=== PATIENT | male | born 1955 | race Caucasian/White ===

== ENCOUNTER → 2020-08-19 08:35 | Outpatient (BNVA) | payer OTHER, SELFPAY | PROVIDERS: Visit Provider Orthopaedic Surgery | DX: Z47.89 Encounter for other orthopedic aftercare (principal); Z96.641 Presence of right artificial hip joint | CPT/HCPCS: 99212 ==

== ENCOUNTER 2021-02-17 08:15 | Outpatient (REF) | payer OTHER, SELFPAY | END 2021-02-17 08:16 | disposition home or self-care (01) | LOC: HO.HOSX 08:15 | PROVIDERS: Visit Provider Orthopaedic Surgery | DX: Z13.89 Encounter for screening for other disorder (principal) ==

== ENCOUNTER 2021-02-20 07:52 | Outpatient (REF) | payer OTHER, SELFPAY ==
--- NOTE | ~2021-02-20 | XR_ITS ---
EXAMINATION: XR PELVIS CLINICAL INFORMATION: Pain COMPARISON: May 13, 2020 TECHNIQUE: AP view of the pelvis. FINDINGS: There is no evidence of acute fracture or diastases the pelvis. Patient status post right total hip arthroplasty which is unchanged on this single view. There is mild spurring about the left hip joint without joint space narrowing appreciated. There appear to be bilateral healed pubic fractures with hypertrophic bone formation about the left inferior pubis. There are also changes of enthesopathy present about the pelvis. There is partial sacralization of L5 on the right. XR/XR pelvis 1-2V IMPRESSION: Status post right total hip arthroplasty. Chronic pubic fractures Sacralization right side of L5.
== END 2021-02-20 07:53 | disposition home or self-care (01) ==
LOC: HO.HOSX 07:52
PROVIDERS: Visit Provider Orthopaedic Surgery
DX: Z96.641 Presence of right artificial hip joint (principal); T84.84XA Pain due to internal orthopedic prosthetic devices, implants and grafts, initial encounter
CPT/HCPCS: 72170; 99212

== ENCOUNTER 2021-10-17 10:17 | Outpatient (REF) | payer OTHER, SELFPAY ==
[2021-10-17 10:40] LABS: Binax Internal Control QC Valid; Binax Now Covid-19 Ag Negative (Negative)
== END 2021-10-17 10:18 | disposition home or self-care (01) ==
LOC: HO.LAB 10:17
PROVIDERS: Visit Provider Internal Medicine
DX: Z20.822 Contact with and (suspected) exposure to COVID-19 (principal)
CPT/HCPCS: C9803

== ENCOUNTER 2022-04-14 14:36 | Outpatient (REF) | payer OTHER, SELFPAY ==
--- NOTE | ~2022-04-14 | XR_ITS ---
EXAMINATION: XR HAND, RIGHT CLINICAL INFORMATION: Reason for examination is M79.89, other specified soft tissue disorders. COMPARISON: None TECHNIQUE: PA, lateral, and oblique views of the right hand. FINDINGS: The soft tissues are diffusely swollen/edematous in the visualized distal forearm, wrist and hand. No soft tissue gas or radiopaque foreign body. Bones have normal alignment. No acute fracture or subluxation. Moderate osteoarthritis of the distal radioulnar joint. The ulnar styloid process is hypertrophied. There appears to be chondrocalcinosis at the level of the triangular fibrocartilage. A well-corticated ossicle is seen in this region. Small marginal osteophytes are present at mildly degenerated radiocarpal and ulnocarpal compartments. There appears to be ulnar positive variance which can predispose to development of degenerative tears of the triangular fibrocartilage. The carpal bones are intact. Small osteophytes are present at multiple mildly degenerated metacarpophalangeal and interphalangeal joints. No erosions or periostitis. XR/XR hand RT min 3V IMPRESSION: * Diffuse nonspecific soft tissue edema of the forearm, wrist and hand. * No acute osseous injury. * Osteoarthritis of multiple joints, including the distal radioulnar joint. The hypertrophied appearance of the ulnar styloid might be sequela of remote trauma.
== END 2022-04-14 14:37 | disposition home or self-care (01) ==
LOC: HO.XRAY 14:36
PROVIDERS: Visit Provider Hospitalist
DX: L03.113 Cellulitis of right upper limb (principal); M79.89 Other specified soft tissue disorders
CPT/HCPCS: 73130

== ENCOUNTER 2023-01-31 11:27 | Emergency (ER) | payer MEDICARE, MEDICAID, SELFPAY ==
--- NOTE | 2023-01-31 11:38 | ED_ITS ---
HPI - Skin/Abscess/Foreign Bdy General Chief complaint: Wound/Laceration <GUSTAVO Tyson - Last Filed: 01/31/23 11:42> Stated complaint: cut on L hand <GUSTAVO Tyson - Last Filed: 01/31/23 11:42> Time Seen by Provider: 01/31/23 12:26 <GUSTAVO Tyson Last Filed: 01/31/23 11:42> Source: patient <GUSTAVO Lowery Last Filed: 01/31/23 13:06> Mode of arrival: ambulatory <GUSTAVO Lowery Last Filed: 01/31/23 13:06> Limitations: no limitations <GUSTAVO Lowery Last Filed: 01/31/23 13:06> History of Present Illness HPI narrative: This is a 67-year-old [id number] male presenting to the emergency department for evaluation of laceration to the dorsal aspect of left hand, patient tells me he cut his hand with a screwdriver, denies any pain, numbness, tingling. Not sure on tetanus status. <GUSTAVO Lowery Last Filed: 01/31/23 13:06> Related Data Home medications: Home Medications Medication Instructions Recorded Confirmed buprenorphine-naloxone [Suboxone] sublingual 08/16/20 04/14/22 buprenorphine 8 mg-naloxone 2 mg 10 mg sublingual DAILY 04/14/22 04/14/22 sublingual film (Suboxone) furosemide 20 mg tablet 20 mg PO BID 04/14/22 04/14/22 insulin glargine 100 unit/mL (3 25 unit subcut DAILY 04/14/22 04/14/22 mL) subcutaneous pen (Lantus Solostar U-100 Insulin) lancets 28 gauge (FreeStyle #100 ea 04/14/22 04/14/22 Lancets) lisinopril 30 mg tablet 30 mg PO DAILY 04/14/22 04/14/22 metformin 500 mg tablet,extended 500 mg PO BID 04/14/22 04/14/22 release 24 hr pen needle, diabetic 32 gauge x #50 ea 04/14/22 04/14/22 (BD Milagro 2nd Gen Pen Needle) Previous Rx's Medication Instructions Recorded cephalexin 750 mg capsule 750 mg PO BID #14 caps 04/14/22 cephalexin 500 mg tablet 500 mg PO Q6H 10 days #40 tabs 01/31/23 <GUSTAVO Tyson - Last Filed: 01/31/23 11:42> Allergies/Adverse reactions: Allergies Allergy/AdvReac Type Severity Reaction Status Date / Time No Known Allergies Allergy Verified 01/31/23 11:39 [No Known Allergies*] <GUSTAVO Tyson - Last Filed: 01/31/23 11:42> Review of Systems Review of Systems: Constitutional : No Fever, No Chills, Cardiovascular : No Chest Pain, No SOB Respiratory : No Dyspnea Gastrointestinal : No abdominal pain Musculoskeletal : No Joint Swelling Skin : No rash, positive skin laceration Neuro : No Weakness, No Numbness Psych : No SI/HI <GUSTAVO Lowery - Last Filed: 01/31/23 13:06> Yes all other systems are reviewed and are negative <GUSTAVO Lowery - Last Filed: 01/31/23 13:06> [facility] Past Medical History Attestation statement: The following information was validated with the patient. <GUSTAVO Lowery - Last Filed: 01/31/23 13:06> Source: old records reviewed and nursing notes reviewed <GUSTAVO Lowery - Last Filed: 01/31/23 13:06> Medical History: Medical History Diabetes History of revision of total replacement of right hip joint Hypertension Infection and inflammatory reaction due to other internal joint prosthesis, sequela Lymphedema Osteomyelitis Presence of unspecified artificial hip joint Primary osteoarthritis of right hip <GUSTAVO Tyson - Last Filed: 01/31/23 11:42> Surgical History: Surgical History History of total right hip arthroplasty <GUSTAVO Tyson - Last Filed: 01/31/23 11:42> Family History Family History: Family History Father No problems noted. Mother No problems noted. <GUSTAVO Tyson - Last Filed: 01/31/23 11:42> Social History Social History: Social History Alcohol intake: current Alcohol intake frequency: holidays/special occasions only Patient Tobacco Use Status: Tobacco use Unknown Advance Directives: No Advance Directives Information Provided: Yes Current occupational status: unemployed Current occupation: Right Handed <GUSTAVO Tyson - Last Filed: 01/31/23 11:42> Physical Exam Vital Signs: Vital Signs: Last Vital Signs Temp 98 F 01/31/23 11:39 Pulse 95 01/31/23 11:39 Resp 17 01/31/23 11:39 BP 129/84 01/31/23 11:39 Pulse Ox 98 01/31/23 11:39 O2 Del Method Room Air 01/31/23 11:39 BMI result Body Mass Index 34.2 <GUSTAVO Tyson - Last Filed: 01/31/23 11:42> Vital Signs: Last Vital Signs Temp 98 F 01/31/23 11:39 Pulse 95 01/31/23 11:39 Resp 17 01/31/23 11:39 BP 129/84 01/31/23 11:39 Pulse Ox 98 01/31/23 11:39 O2 Del Method Room Air 01/31/23 11:39 BMI result Body Mass Index 34.2 vss <GUSTAVO Lowery - Last Filed: 01/31/23 13:06> Appearance: Alert.? Oriented X3.? No acute distress.? Head: Normocephalic, atraumatic, no step-offs or deformities Eyes: Pupils equal, round and reactive to light.? CVS: Normal heart rate and rhythm.? Pulses normal.? Respiratory: No respiratory distress.? Breath sounds normal.? Abdomen: Soft and nontender.? Skin: Skin warm and dry.? Normal skin color.? Normal skin turgor.?+ left dorsal aspect of hand with a 4 cm simple superficial laceration, no visualized foreign bodies. Full range of motion to bilateral hands, fingers, wrist. 2+ radial pulses equal bilateral. No wrist drop. Normal capillary refill less than 2 seconds to bilateral upper extremity digits. Extremities: No lower extremity edema.? No calf ttp. 5/5 strength to bilateral upper and lower extremities Neuro: Oriented X 3.? No motor deficit.? No sensory deficit. CN 2-12 intact <GUSTAVO Lowery - Last Filed: 01/31/23 13:06> Course Course Course Narrative: RME: 67yo M w/no sig PMHx DM, HTN, lymphedema, osteoarthritis, presenting to the ED complaining of left hand laceration s/p using screwdriver [employer]. Tetanus unknown 2cm superficial laceration noted to left hand dorsal aspect between 1st and 2nd MCP. Underlying structures appear intact Tetanus and lidocaine ordered. Patient will need repair Full HPI, ROS and PE to be performed by primary ED provider. <GUSTAVO Tyson - Last Filed: 01/31/23 11:42> Reevaluation(s) Reevaluation #1: Area was successfully closed with glue and Steri-Strips prior to doing so verbal consent was obtained. And prior to closure area was irrigated well as water, hydrogen peroxide and saline. Tetanus shot given. Educated patient on diagnosis and treatment plan, answered all question, patient verbalizes understanding. At this time patient will be discharged home, advised to return with new or worsening symptoms. Educated on worrisome signs and symptoms and when to return. At this time I feel comfortable discharge home. <GUSTAVO Lowery - Last Filed: 01/31/23 13:06> Time: 13:05 <GUSTAVO Lowery - Last Filed: 01/31/23 13:06> Medications Administered Discontinued Medications Generic Name Dose Route Start Last Admin Trade Name Freq PRN Reason Stop Dose Admin Diphtheria/Tetanus/Acell Pertussis 0.5 ml 01/31/23 11:40 01/31/23 12:09 Diphth,Pertus(Acell),Tet Adult 0.5 Ml Syringe IM 01/31/23 11:41 0.5 ml .ONCE ONE Administration <GUSTAVO Tyson - Last Filed: 01/31/23 11:42> Medications Administered Discontinued Medications Generic Name Dose Route Start Last Admin Trade Name Freq PRN Reason Stop Dose Admin Diphtheria/Tetanus/Acell Pertussis 0.5 ml 01/31/23 11:40 01/31/23 12:09 Diphth,Pertus(Acell),Tet Adult 0.5 Ml Syringe IM 01/31/23 11:41 0.5 ml .ONCE ONE Administration <GUSTAVO Lowery - Last Filed: 01/31/23 13:06> Medical Decision Making Medical Decision Making [facility] Narrative: 2044 67-year-old male presents with laceration to left hand not up-to-date on tetanus shot. Denies numbness and tingling. Physical exam significant for + left dorsal aspect of hand with a 4 cm simple superficial laceration, no visualized foreign bodies. Full range of motion to b ilateral hands, fingers, wrist. 2+ radial pulses equal bilateral. No wrist drop. Normal capillary refill less than 2 seconds to bilateral upper extremity digits. This is likely a simple laceration, no signs of foreign body, fracture, dislocation, neurovascular compromise or threatened limb. Plan will repair with glue and Steri-Strips <GUSTAVO Lowery Last Filed: 01/31/23 13:06> Differential Diagnosis Differential Diagnoses: The differential diagnosis associated with the presentation includes <GUSTAVO Lowery Last Filed: 01/31/23 13:06> This is likely a simple laceration, no signs of foreign body, fracture, dislocation, neurovascular compromise or threatened limb. <GUSTAVO Lowery Last Filed: 01/31/23 13:06> Core Measures AMI core measures followed: Yes <GUSTAVO Lowery Last Filed: 01/31/23 13:06> Measure exclusions: not indicated <GUSTAVO Lowery Last Filed: 01/31/23 13:06> Procedures Laceration Left hand dorsal aspect: Site: hand <GUSTAVO Lowery Last Filed: 01/31/23 13:06> Side (If applicable): left <GUSTAVO Lowery Last Filed: 01/31/23 13:06> Size (cm): 4 <GUSTAVO Lowery - Last Filed: 01/31/23 13:06> Description: linear <GUSTAVO Lowery Last Filed: 01/31/23 13:06> Depth: simple, single layer <GUSTAVO Lowery Last Filed: 01/31/23 13:06> Pre-repair: wound explored, irrigated extensively and deep structures intact <GUSTAVO Lowery Last Filed: 01/31/23 13:06> Skin layer closed with: other (dermabond) <GUSTAVO Lowery Last Filed: 01/31/23 13:06> Critical Care Time Critical Care Time Critical Care Time: No <GUSTAVO Lowery Last Filed: 01/31/23 13:06> Discharge Plan Discharge Clinical Impression: Laceration <GUSTAVO Tyson Last Filed: 01/31/23 11:42> Patient Disposition: Home, Self-Care <GUSTAVO Tyson Last Filed: 01/31/23 11:42> Additional Instructions: Take your medications as prescribed. If you were prescribed antibiotics today, it is important that you take your medication to their entirety, do not skip any doses, do not finish them early. Follow-up with your primary care provider this week. Return to the emergency department with new or worsening symptoms. Such as fevers, chills, chest pain, shortness of breath, nausea, vomiting, dizziness, headache, vision changes, lethargy In case of emergency call 911 Keep glue and Steri-Strips on until they fall off keep area dry and clean. <GUSTAVO Tyson Last Filed: 01/31/23 11:42> Prescriptions: New cephalexin 500 mg tablet 500 mg PO Q6H 10 Days Qty: 40 0RF No Action buprenorphine-naloxone [Suboxone] 8-2 mg film 10 mg sublingual DAILY metformin 500 mg tablet extended release 24 hr 500 mg PO BID lisinopril 30 mg tablet 30 mg PO DAILY furosemide 20 mg tablet 20 mg PO BID (DME) lancets [FreeStyle Lancets] 28 gauge misc See Rx Instructions Not Applicable .MEDSUPPLY Qty: 100 Rx Instructions: As directed (DME) pen needle, diabetic [BD Milagro 2nd Gen Pen Needle] 32 gauge x 5/32 need le See Rx Instructions subcut DAILY Qty: 50 Rx Instructions: As directed insulin glargine [Lantus Solostar U-100 Insulin] 100 unit/mL (3 mL) insulin pen 25 unit subcut DAILY cephalexin 750 mg capsule 750 mg PO BID Qty: 14 0RF buprenorphine-naloxone sublingual <GUSTAVO Tyson - Last Filed: 01/31/23 11:42> Referrals: Physician,Unknown J [Primary Care Provider] - 2 days <GUSTAVO Tyson - Last Filed: 01/31/23 11:42> Stand Alone Forms: Work/School Release <GUSTAVO Tyson - Last Filed: 01/31/23 11:42>
[2023-01-31 11:39] VITALS: BP 129/84; PULSE 95; RESP 17; TEMP 36.6; O2SAT 98; BMI 34.2
[2023-01-31] MEDS: Diphth,Pertus(ACell),Tet Adult 0.5 ML SYRINGE IM (12:09)
--- NOTE | 2023-01-31 13:10 | PC.NURSE ---
pt hand cleansed with NS and peroxide, awaiting closure by provider
== END 2023-01-31 13:21 | disposition home or self-care (01) ==
PROVIDERS: Emergency Provider Emergency Medicine
DX: S61.412A Laceration without foreign body of left hand, initial encounter (principal); S60.512A Abrasion of left hand, initial encounter; M79.642 Pain in left hand; I10 Essential (primary) hypertension; W26.9XXA Contact with unspecified sharp object(s), initial encounter; Y93.9 Activity, unspecified; Y92.9 Unspecified place or not applicable; Y99.9 Unspecified external cause status; Z23 Encounter for immunization; Z79.899 Other long term (current) drug therapy
CPT/HCPCS: 12002; 90471; 90715; 99282; 99284

== ENCOUNTER 2023-10-08 01:37 | Emergency (ER) | payer MEDICARE, MEDICAID, SELFPAY ==
[2023-10-08 01:39] VITALS: BP 145/88; PULSE 97; RESP 19; TEMP 36.1; O2SAT 96; BMI 34.7
--- NOTE | 2023-10-08 01:55 | ED_ITS ---
HPI - General Adult General Chief complaint: General Medical Stated complaint: facial swelling Time Seen by Provider: 10/08/23 01:51 Source: patient Mode of arrival: ambulatory History of Present Illness HPI narrative: This 67-year-old male with history of diabetes, hypertension and uses lisinopril and comes in with onset of initially upper lip swelling after blowing the water out of a hose that he was cleaning his pool with. Patient states that he did not really think too much of it and went to sleep and then woke up and found that both upper and lower lips were swollen as well as bilateral sides of his face, he denies any difficulty with swallowing or breathing, denies any scratchiness in the back of his throat Related Data Home Medications Medication Instructions Recorded Confirmed buprenorphine-naloxone [Suboxone] sublingual 08/16/20 04/14/22 buprenorphine 8 mg-naloxone 2 mg 10 mg sublingual DAILY 04/14/22 04/14/22 sublingual film (Suboxone) furosemide 20 mg tablet 20 mg PO BID 04/14/22 04/14/22 insulin glargine 100 unit/mL (3 25 unit subcut DAILY 04/14/22 04/14/22 mL) subcutaneous pen (Lantus Solostar U-100 Insulin) lancets 28 gauge (FreeStyle #100 ea 04/14/22 04/14/22 Lancets) metformin 500 mg tablet,extended 500 mg PO BID 04/14/22 04/14/22 release 24 hr pen needle, diabetic 32 gauge x #50 ea 04/14/22 04/14/22 5/32 (BD Milagro 2nd Gen Pen Needle) Previous Rx's Medication Instructions Recorded cephalexin 750 mg capsule 750 mg PO BID #14 caps 04/14/22 cephalexin 500 mg tablet 500 mg PO Q6H 10 days #40 tabs 01/31/23 amlodipine 10 mg tablet (Norvasc) 10 mg PO DAILY #30 tabs 10/08/23 epinephrine 0.3 mg/0.3 mL 0.3 mg (0.3 mL) IM Q4H PRN 10/08/23 injection, auto-injector (EpiPen anaphylaxis #2 ea 2-Chandu) Allergies Allergy/AdvReac Type Severity Reaction Status Date / Time No Known Allergies Allergy Verified 01/31/23 11:39 [No Known Allergies*] Review of Systems Review of Systems: Pertinent positives and negatives as stated in the [facility] Past Medical History Source: nursing notes reviewed Onset Date is defined in the Problem List Problems that require an onset date and time if occurred within 24 hrs of arrival to the ED Aortic Dissection and Rupture; Neurologic impairment; Cardiopulmonary Arrest; Endotracheal Intubation; Insertion or Replacement of Mechanical Circulatory Assist Device Medical History History of revision of total replacement of right hip joint Diabetes Hypertension Lymphedema Osteomyelitis Presence of unspecified artificial hip joint Infection and inflammatory reaction due to other internal joint prosthesis, sequela Primary osteoarthritis of right hip Surgical History History of total right hip arthroplasty Family History Family History Father No problems noted. Mother No problems noted. Social History Social History Alcohol intake: current Alcohol intake frequency: holidays/special occasions only Patient Tobacco Use Status: Tobacco use Unknown Substance Use Type: Marijuana Current occupational status: unemployed Current occupation: Right Handed Physical Exam ED Vital Signs: Vital Signs - 24 hr 10/08/23 01:39 Temperature 96.9 F Pulse Rate 97 Respiratory Rate 19 Blood Pressure 145/88 H Pulse Oximetry 96 Oxygen Delivery Method Room Air BMI result Body Mass Index 34.7 VITAL SIGNS: Reviewed. GENERAL: Well developed, well nourished, in no acute distress. HEAD: Normocephalic/atraumatic EYES: PERRLA, EOMI EARS: Ext canals without abnormality NOSE: Nares patent bilateral OROPHARYNX: no oral lesions noted, posterior pharynx clear, posterior pharynx is wide open no evidence of edema to the uvula or posterior tissues, lips are swollen as well as bilateral cheek areas NECK: Supple, no adenopathy LUNGS: No stridor, no increased work of breathing/tachypnea or noted wheeze/rhonchi/rales. SpO2<96> CARDIOVASCULAR: Regular rate and rhythm without noted murmurs ABDOMEN: Soft, non-tender, non-distended with bowel sounds. No rigidity. No guarding. No palpable masses or hernias noted MUSCULOSKELETAL: No tenderness, deformities, or effusions noted on gross inspection. EXTREMITIES: No cyanosis, clubbing or edema. SKIN: Inspection of the skin reveals no rashes NEUROLOGIC: Alert and oriented x 4. Strength and sensation to light touch were grossly intact x 4. Medical Decision Making Medical Decision Making MDM Narrative: 67-year-old male with history and clinical presentation consistent with angioedema, no acute airway concerns at this time, no evidence to suggest anaphylaxis. Unknown inciting etiology but as precautionary will cautioned patient from using lisinopril moving forward and switch blood pressure medication. Patient will be acutely given IV Benadryl/Pepcid as well as Solu- Medrol and observed. Patient will be discharged with an EpiPen. Signed out to Dr Davis. Differential Diagnosis Differential Diagnoses: The differential diagnosis associated with the presentation includes Please see the discussion above Admission/Observation Consideration of admission/observation: Escalation of care including admission/observation considered Please see the discussion above Discharge Plan Discharge Clinical Impression: Angioedema Patient Disposition: Still a Patient Instructions: Angioedema (ED) Additional Instructions: STOP TAKING LISINOPRIL Prescriptions: New epinephrine [EpiPen 2-Chandu] 0.3 mg/0.3 mL auto-injector 0.3 mg IM Q4H PRN (Reason: anaphylaxis) Qty: 2 0RF amlodipine [Norvasc] 10 mg tablet 10 mg PO DAILY Qty: 30 0RF Discontinued lisinopril 30 mg tablet 30 mg PO DAILY No Action cephalexin 500 mg tablet 500 mg PO Q6H 10 Days Qty: 40 0RF buprenorphine-naloxone [Suboxone] 8-2 mg film 10 mg sublingual DAILY metformin 500 mg tablet extended release 24 hr 500 mg PO BID furosemide 20 mg tablet 20 mg PO BID (DME) lancets [FreeStyle Lancets] 28 gauge misc See Rx Instructions Not Applicable .MEDSUPPLY Qty: 100 Rx Instructions: As directed (DME) pen needle, diabetic [BD Milagro 2nd Gen Pen Needle] 32 gauge x 5/32 needle See Rx Instructions subcut DAILY Qty: 50 Rx Instructions: As directed insulin glargine [Lantus Solostar U-100 Insulin] 100 unit/mL (3 mL) insulin pen 25 unit subcut DAILY cephalexin 750 mg capsule 750 mg PO BID Qty: 14 0RF buprenorphine-naloxone sublingual
[2023-10-08] MEDS: methylPREDNISolone Sod Succ 125 MG/2 ML VIAL IVPUSH (02:12)
[2023-10-08] MEDS: Famotidine/PF 20 MG/2 ML VIAL IVPUSH (02:12)
[2023-10-08] MEDS: diphenhydrAMINE HCL 50 MG/ML VIAL IVPUSH (02:12)
[2023-10-08 02:59] VITALS: BP 128/79; PULSE 75; RESP 20; O2SAT 94
--- NOTE | 2023-10-08 03:38 | PC.NURSE ---
pt resting comfortably with eyes closed, breathing even and unlabored. no resp distress, O2 86%. placed pt on 2L NC while resting
--- NOTE | 2023-10-08 03:39 | PC.NURSE ---
O2 at 99% on 2L when awake. no c/o dif breathing. denies copd and sleep apnea
[2023-10-08 04:48] VITALS: BP 134/73; PULSE 68; RESP 18; O2SAT 93
[2023-10-08 05:55] VITALS: BP 141/90; PULSE 75; RESP 16; TEMP 36.4; O2SAT 95
== END 2023-10-08 06:05 | disposition home or self-care (01) ==
PROVIDERS: Emergency Provider Emergency Medicine
DX: L50.0 Allergic urticaria (principal); Z79.899 Other long term (current) drug therapy
CPT/HCPCS: 96374; 96375; 99284; J1200; J2930

== ENCOUNTER 2024-09-20 15:44 | Observation (INO) | payer MEDICARE, MEDICAID, SELFPAY ==
[2024-09-20 15:53] VITALS: BP 158/79; PULSE 74; RESP 18; TEMP 36.6; O2SAT 99; BMI 37.0
--- NOTE | 2024-09-20 16:01 | ED.GENADULT ---
HPI - General Adult General Chief complaint: Allergic Reaction Stated complaint: ? allergic reaction? High BP Time Seen by Provider: 09/20/24 16:04 Source: patient Mode of arrival: ambulatory Limitations: no limitations History of Present Illness ED Provider: DR. Sheehan HPI narrative: 68-year-old male with history of DM, HTN, angioedema (used to take lisinopril to control blood pressure that was discontinued after the episode of angioedema and patient was prescribed 1 EpiPen to keep at home). Patient wake up at 03:00 feeling swelling of the left side of the face and lips, feels very dry mouth that is affecting his speech articulation but no difficulty breathing, no change voice, able to speak in full sentence, able to swallow liquid without difficulty. Patient injected himself with EpiPen at home concern of recurrence of angioedema, patient reports subjective improvement of his above symptoms. No new medication was started. The only thing patient is thinking off that he ate a lot of jerky beef (has never eaten before in his life) yesterday before the symptoms started Related Data Home Medications ?Medication ?Instructions ?Recorded ?Confirmed buprenorphine 8 mg-naloxone 2 mg 1 film sublingual DAILY 04/14/22 09/20/24 sublingual film (Suboxone) lancets 28 gauge (FreeStyle #100 ea 04/14/22 04/14/22 Lancets) metformin 500 mg tablet,extended 500 mg PO BIDWM 04/14/22 09/20/24 release 24 hr pen needle, diabetic 32 gauge x #50 ea 04/14/22 04/14/22/32 (BD Milagro 2nd Gen Pen Needle) albuterol sulfate 90 mcg/actuation 2 puff inhalation Q4H PRN wheezing 09/20/24 09/20/24 aerosol inhaler aspirin 81 mg tablet,delayed 81 mg PO DAILY 09/20/24 09/20/24 release atorvastatin 10 mg tablet 10 mg PO DAILY 09/20/24 09/20/24 furosemide 40 mg tablet 40 mg PO DAILY 09/20/24 09/20/24 hydralazine 25 mg tablet 25 mg PO TID 09/20/24 09/20/24 ibuprofen 600 mg tablet 600 mg PO Q8H PRN pain 09/20/24 09/20/24 insulin glargine 100 unit/mL (3 34 unit subcut BEDTIME 09/20/24 09/20/24 mL) subcutaneous pen (Basaglar KwikPen U-100 Insulin) losartan 25 mg tablet 25 mg PO DAILY 09/20/24 09/20/24 potassium chloride 20 mEq 20 meq PO DAILY 09/20/24 09/20/24 tablet,extended release Previous Rx's ?Medication ?Instructions ?Recorded amlodipine 10 mg tablet (Norvasc) 10 mg PO DAILY #30 tabs 10/08/23 epinephrine 0.3 mg/0.3 mL 0.3 mg (0.3 mL) IM Q4H PRN 10/08/23 injection, auto-injector (EpiPen anaphylaxis #2 ea 2-Chandu) Allergies Allergy/AdvReac Type Severity Reaction Status Date / Time lisinopril AdvReac Severe Angioedema Verified 09/20/24 15:56 Review of Systems Review of Systems: All other systems are reviewed and are negative Constitutional: Reports as per HPI and Reports no additional constitutional complaints Eyes: Reports as per HPI and Reports no additional eye complaints Reports system reviewed and no additional complaints, except as documented Cardiovascular: Reports as per HPI and Reports no additional cardiovascular complaints Respiratory: Reports as per HPI and Reports no additional respiratory complaints Gastrointestinal: Reports as per HPI and Reports no additional gastrointestinal complaints Genitourinary: Reports no additional female genitourinary complaints Musculoskeletal: Reports no additional musculoskeletal complaints Skin/Breast: Reports system reviewed and no additional complaints, except as docu Psychiatric: Reports no additional psychiatric complaints Endocrine: Reports no additional endocrine complaints Hematologic/Lymphatic: Reports no additional hematologic/lymphatic complaints Allergic/Immunologic: Reports no additional allergic/immunologic complaints Reports system reviewed and no additional complaints, except as documented and Reports Abnormal speech present [facility] Past Medical History Medical History Diabetes Hypertension Lymphedema Osteomyelitis Presence of unspecified artificial hip joint Infection and inflammatory reaction due to other internal joint prosthesis, sequela Primary osteoarthritis of right hip Surgical History History of revision of total replacement of right hip joint History of total right hip arthroplasty Family History Family History Father No problems noted. Mother No problems noted. Social History Social History Alcohol intake: current Alcohol intake frequency: holidays/special occasions only Patient Tobacco Use Status: Tobacco use Unknown Smoked in Last 30 Days: Yes Use of substances other than those prescribed or required for medical reasons: No Substance Use Type: Marijuana Advance Directives: No Advance Directives Information Provided: No Current occupational status: unemployed Current occupation: Right Handed Physical Exam ED Vital Signs: Vital Signs - 24 hr 09/20/24 15:53 09/20/24 16:06 09/20/24 16:37 Temperature 98 F 98.4 F Pulse Rate 74 78 65 Respiratory Rate 18 23 H Blood Pressure 158/79 H 162/87 H 132/69 Pulse Oximetry 99 96 Oxygen Delivery Method Room Air Room Air 09/20/24 17:49 Temperature Pulse Rate 66 Respiratory Rate 16 Blood Pressure 126/78 Pulse Oximetry 98 Oxygen Delivery Method Room Air BMI result Body Mass Index 37.0 Vital signs have been reviewed and appear to be correct. Blood pressure elevated. Heart rate normal. Respiratory rate normal. Temperature normal. Oxygen saturation normal. Appearance: Alert. Oriented X3. No acute distress. Head: Normal external exam. Normocephalic. Atraumatic. No Peterson signs noted. No raccoon eyes noted Eyes: PERRLA. EOMI. Conjunctiva and sclera normal. Eyelids normal. ENT: TM's Normal. Pharynx normal. Uvula midline. Moist mucous membranes. No trismus noted. No drooling noted. No muffled voice noted. Left facial swelling, upper and lower lip swelling. Neck: Normal inspection. Neck supple. FROM. No adenopathy. Thyroid Normal. No meningeal signs. No neck mass noted. CVS: Normal heart rate and rhythm. Heart sound normal. No murmurs noted. Pulses normal throughout. Respiratory: No respiratory distress. Painless inspiration. Breath sounds normal. No wheezes/rales/rhonchi noted. Chest nontender. No accessory muscle usage noted or decreased air movement noted. Abdomen: Soft and nontender. Bowel sounds normal in all 4 quadrants. No distention noted. No organomegaly noted. No visible injury noted. Back: No CVA tenderness. Full range of motion noted. Skin: Skin warm and dry. Normal skin color. Normal skin turgor. No rashes/lesions/lacerations noted. Extremities: No lower extremity edema. Extremities exhibit normal range of motion. Extremities nontender. Neuro: Mental status: Normal attention, orientation, memory, and affect. Cranial nerves: Pupils are equal, round and reactive to light, EOMI, visual phillips are fall, face is symmetric, facial sensations are normal. Motor examination normal muscle tone, strength to 4 extremities. DTR are +2, planter's are flexor. Sensory exam; normal coordination, no ataxia, gait stable. Cerebellar exam: [id number] and avoi-[id number] is normal. Extrapyramidal system: No tremors, no rigidity with normal facial expressions. Pronator drift not present Course Course Course Narrative: RME: 68-year-old male presents to ED for left facial swelling elevated blood pressure. Patient states this morning he had left facial swelling and left lip swelling with itchy sensation so he took EpiPen in case it was anaphylactic reaction. Physical exam positive for left facial swelling with redness slight left lip swelling. Patient speaking in full sentences negative for any uvular swelling or signs of any oral dental abscess. Patient brought back to the ED immediately. Reevaluation(s) Reevaluation #1: A 68-year-old male with angioedema without clear offending agent. Patient received epinephrine/Solu-Medrol/Pepcid with minimal improvement. Patent airway with no stridor, no voice change, no wheezing. Will admit for airway/angioedema monitoring Time: 18:14 Medications Administered Discontinued Medications Generic Name Dose Route Start Last Admin Trade Name Freq PRN Reason Stop Dose Admin Epinephrine 0.1 mg 09/20/24 16:07 09/20/24 16:37 Epinephrine 1 Mg/Ml Vial IVPUSH 09/20/24 16:08 0.1 mg STAT STA Administration Famotidine 20 mg 09/20/24 16:07 09/20/24 16:38 Famotidine/Pf 20 Mg/2 Ml Vial IVPUSH 09/20/24 16:08 20 mg ONCE ONE Administration Sodium Chloride 1,000 mls @ 999 mls/hr 09/20/24 16:07 09/20/24 17:45 Ns IV 09/20/24 17:07 Infused .Q1H1M ONE Infusion Methylprednisolone Sodium Succinate 125 mg 09/20/24 16:07 09/20/24 16:38 Methylprednisolone Sod Succ 125 Mg/2 Ml Vial IV 09/20/24 16:08 125 mg ONCE ONE Administration Medical Decision Making Differential Diagnosis Differential Diagnoses: The differential diagnosis associated with the presentation includes (Angioedema, allergic reaction, facial cellulitis, Cardenas's palsy, electrolyte derangement, airway compromise, severe anemia.) Admission/Observation Consideration of admission/observation: Escalation of care including admission/observation considered Consult Healthcare Provider Management of the patient was discussed with: Hospitalist (Dr. Martinez) Lab Data MDM Lab Attestation statement: I reviewed the patient's lab results. 09/20/24 16:12 09/20/24 16:12 Labs: Lab Results 09/20/24 09/20/24 Range/Units 16:12 18:39 WBC 10.8 (4.8-10.8) X10*3/uL RBC 5.07 (4.60-5.80) X10*6/uL Hgb 14.9 (14.0-18.0) g/dl Hct 43.1 (42.0-52.0) % MCV 85.0 (80.0-98.0) fL MCH 29.4 (27.0-33.0) pg MCHC 34.6 (31.0-36.0) g/dl RDW 13.6 (11.0-16.0) % Plt Count 313 (160-400) X10*3/uL MPV 9.2 L (9.4-12.4) fL Immature Gran % (Auto) 0.4 (0.0-0.4) % Neut % (Auto) 61.7 (45-73) % Lymph % (Auto) 26.2 (20-40) % [place] % (Auto) 8.3 (2-11) % Eos % (Auto) 2.8 (0-4) % Baso % (Auto) 0.6 (0-2) % Lymph # (Auto) 2.8 (1.2-4.9) X10*3/uL [place] # (Auto) 0.9 (0.1-1.2) X10*3/uL Eos # (Auto) 0.3 (0.0-0.4) X10*3/uL Baso # (Auto) 0.1 (0.0-0.2) X10*3/uL Abs Immat Gran (auto) 0.04 H (0.00-0.03) X10*3/uL Absolute Neuts (auto) 6.7 (2.0-8.3) x10*3/uL Absolute Nucleated RBC 0.000 (0.0-0.012) X10*3/uL Nucleated RBC % (auto) 0.0 (0.0-0.2) /100WBC Sodium 138 (135-145) mmol/L Potassium 3.4 (3.3-5.1) mmol/L Chloride 101 (96-108) mmol/L Carbon Dioxide 27 (22-29) mmol/L Anion Gap 13 (12-20) BUN 14 (9-16) mg/dL Creatinine 0.92 (0.5-1.4) mg/dL Estim Creat Clear Calc 104.1 Estimated GFR > 60 Random Glucose 200 H (60-115) mg/dL Calcium 9.0 (8.4-10.2) mg/dL Troponin I High Sens 4.0 (<3.5-35.0) ng/L Urine Color Yellow Urine Appearance Clear Urine pH 7.0 (5.0-9.0) Ur Specific [place] 1.020 (1.005-1.025) Urine Protein 300 (3+) H (Neg-Trace) mg/dL Urine Glucose (UA) Negative (Negative) mg/dL Urine Ketones Negative (Negative) mg/dL Urine Blood Negative (Negative) Urine Nitrite Negative (Negative) Ur Leukocyte Esterase Negative (Negative) Discharge Plan Discharge Clinical Impression: Angioedema Patient Disposition: Admitted As Inpatient Print Language: Kazakh
[2024-09-20 16:06] VITALS: BP 162/87; PULSE 78; RESP 23; TEMP 36.9; O2SAT 96
[2024-09-20 16:19] LABS: MANUAL DIFF FLAG NO
[2024-09-20 16:21] LABS: Basophils Absolute Auto 0.1 X10*3/uL (0.0-0.2); Basophils Percent Auto 0.6 % (0-2); Eosinophils Absolute Auto 0.3 X10*3/uL (0.0-0.4); Eosinophils Percent Auto 2.8 % (0-4); Hematocrit 43.1 % (42.0-52.0); Hemoglobin 14.9 g/dl (14.0-18.0); Imm Gran Abs Auto 0.04 X10*3/uL (0.00-0.03); Imm Gran Pct Auto 0.4 % (0.0-0.4); Lymphocytes Absolute Auto 2.8 X10*3/uL (1.2-4.9); Lymphocytes Percent Auto 26.2 % (20-40); Mean Corpuscular HGB Conc 34.6 g/dl (31.0-36.0); Mean Corpuscular Hemoglobin 29.4 pg (27.0-33.0); Mean Platelet Volume 9.2 fL (9.4-12.4); Monocytes Absolute Auto 0.9 X10*3/uL (0.1-1.2); Monocytes Percent Auto 8.3 % (2-11); Neutrophils Absolute Auto 6.7 x10*3/uL (2.0-8.3); Neutrophils Percent Auto 61.7 % (45-73); Platelet Count 313 X10*3/uL (160-400); Red Blood Count 5.07 X10*6/uL (4.60-5.80); Red Cell Distribution Width 13.6 % (11.0-16.0); White Blood Count 10.8 X10*3/uL (4.8-10.8)
[2024-09-20 16:36] LABS: Anion Gap 13 (12-20); Blood Urea Nitrogen 14 mg/dL (9-16); Carbon Dioxide 27 mmol/L (22-29); Chloride 101 mmol/L (96-108); Creatinine Clr Calc Pharmacy 104.1; Estimated Glomerular Filt Rate > 60; Glucose Random 200 mg/dL (60-115); Potassium 3.4 mmol/L (3.3-5.1); Sodium 138 mmol/L (135-145)
[2024-09-20 16:37] VITALS: BP 132/69; PULSE 65
[2024-09-20] MEDS: EPINEPHrine 1 MG/ML VIAL IVPUSH (16:37)
[2024-09-20] MEDS: methylPREDNISolone Sod Succ 125 MG/2 ML VIAL IV (16:38)
[2024-09-20] MEDS: 0.9 % Sodium Chloride 1,000 ML 999 ML IV (16:38)
[2024-09-20] MEDS: Famotidine/PF 20 MG/2 ML VIAL IVPUSH (16:38)
--- NOTE | 2024-09-20 17:31 | PC.NURSE ---
Pt presents to ED via triage from home, reports left sided facial swelling and redness that started this morning. Pt has hx of angioedema and allergic reactions to lisinopril, took his epipen at 5AM this morning due to swelling with no improvements. Decided to come into ER. Alert and oriented, breathing even and unlabored, skin warm and dry. Pt neg for wheezing, SOB, CP, hives, N/V/D.
[2024-09-20 17:49] VITALS: BP 126/78; PULSE 66; RESP 16; O2SAT 98
--- NOTE | 2024-09-20 18:43 | PHA.MEDREC ---
Pharmacy Consult ? Medication Reconciliation Pharmacy has completed the medication reconciliation. Spoke with patient in the ED who knew all medications.
[2024-09-20 18:47] LABS: Appearance Urine Clear; Color Urine Yellow; Glucose Urine UA Negative (Negative); Leukocyte Esterase Urine Negative (Negative); Nitrite Urine Negative (Negative); UMIC TRIGGER UACC YES; Urine Blood Negative (Negative); Urine Ketones Negative (Negative); Urine Protein 300 (3+) mg/dL (Neg-Trace)
[2024-09-20 19:00] LABS: Bacteria Urine None Seen (None Seen); Hyaline Casts Urine 0-2 /LPF (0-2); RBC Urine 0-2 /HPF (0-2); Squamous Epithelial Cell Urine 0-2 /HPF (0-2); WBC Urine 0-5 /HPF (0-5)
--- NOTE | 2024-09-20 19:08 | P.HPHOSP_ITS ---
History of Present Illness Date of Service: 09/20/24 Chief Complaint: Swollen lips, allergic reaction A 68 years old male with PMH of HTN, CAD, HLD, Angioedema, DMII among others who presents to the hospital with swelling in left side of his face and lips. The patient had history of angioedema while on Lisinopril that was then switched to Losartan months ago. He had some Beef jerk last night and went to bed. He woke up around 3 am to go to the bathroom and noticed some swelling in his face and lips but did not do anything about it and went back to sleep. woke up again at 6 and noticed the swelling worsening so he took his Epinephrine pen shot. He denies any difficulties breathing, speech, voice, swallowing. No chest pain, palpitations, SOB, nausea, vomiting, diarrhea or urinary symptoms. No new medications started recently. the only new thing was the Jerky beef that he had the night before. In ED he was still showing lip and face swelling so he received Epinephrine again along with IV steroids and Pepcid. Admitted for observation. - Review of Systems 2 Review of Systems: No fever, chills or weakness No chest pain, palpitation No shortness of breath or coughing No abdominal pain, nausea or vomiting No urinary symptoms lips and lt face swelling PMFSH Medical History Diabetes Hypertension Lymphedema Osteomyelitis Presence of unspecified artificial hip joint Infection and inflammatory reaction due to other internal joint prosthesis, sequela Primary osteoarthritis of right hip Family History Father No problems noted. Mother No problems noted. Surgical History History of revision of total replacement of right hip joint History of total right hip arthroplasty Social History Alcohol intake: current Alcohol intake frequency: holidays/special occasions only Patient Tobacco Use Status: Tobacco use Unknown Smoked in Last 30 Days: Yes Use of substances other than those prescribed or required for medical reasons: No Substance Use Type: Marijuana Advance Directives: No Advance Directives Information Provided: No Current occupational status: unemployed Current occupation: Right Handed Meds Allergies Allergy/AdvReac Type Severity Reaction Status Date / Time lisinopril AdvReac Severe Angioedema Verified 09/20/24 15:56 Active Medications: Current Medications Acetaminophen (Acetaminophen 325 Mg Tablet) 650 mg PO Q6H PRN PRN Reason: Pain, Mild 1-3,fever,headache Calcium Carbonate (Calcium Carbonate 750 Mg Tab.Chew) 750 mg PO Q4H PRN PRN Reason: Heartburn Diphenhydramine HCl (Diphenhydramine Hcl 25 Mg Capsule) 25 mg PO Q6H [facility]IVIANA Enoxaparin Sodium (Enoxaparin Sodium 40 Mg/0.4 Ml Syringe) 40 mg SUBCUT Q24H VIVIANA Famotidine (Famotidine 20 Mg Tablet) 20 mg PO BID [facility] Insulin Human Lispro (Insulin Lispro 100 Unit/Ml 3 Ml Vial) 0 unit SUBCUT QIDACHS VIVIANA; Protocol Magnesium Hydroxide (Milk Of Magnesia 30 Ml Oral.Susp) 30 ml PO DAILY PRN PRN Reason: Constipation Melatonin (Melatonin 3 Mg Tablet) 6 mg PO BEDTIME PRN PRN Reason: Insomnia Ondansetron HCl (Ondansetron Hcl 4 Mg/2 Ml Vial) 4 mg IVPUSH Q8H PRN PRN Reason: Nausea and Vomiting Prednisone (Prednisone 20 Mg Tablet) 40 mg PO BIDWM [facility] Sodium Chloride (0.9 % Sodium Chloride Flush 3 Ml Syringe) 3 ml IVFLUSH QSHIFT [facility] Home Medications ?Medication ?Instructions ?Recorded ?Confirmed ?Last Taken ?Type buprenorphine 8 mg-naloxone 2 mg 1 film sublingual DAILY 04/14/22 09/20/24 Unknown History sublingual film (Suboxone) lancets 28 gauge (FreeStyle #100 ea 04/14/22 04/14/22 Unknown History Lancets) metformin 500 mg tablet,extended 500 mg PO BIDWM 04/14/22 09/20/24 Unknown History release 24 hr pen needle, diabetic 32 gauge x #50 ea 04/14/22 04/14/22 Unknown History (BD Milagro 2nd Gen Pen Needle) albuterol sulfate 90 mcg/actuation 2 puff inhalation Q4H PRN wheezing 09/20/24 09/20/24 Unknown History aerosol inhaler aspirin 81 mg tablet,delayed 81 mg PO DAILY 09/20/24 09/20/24 Unknown History release atorvastatin 10 mg tablet 10 mg PO DAILY 09/20/24 09/20/24 Unknown History furosemide 40 mg tablet 40 mg PO DAILY 09/20/24 09/20/24 Unknown History hydralazine 25 mg tablet 25 mg PO TID 09/20/24 09/20/24 Unknown History ibuprofen 600 mg tablet 600 mg PO Q8H PRN pain 09/20/24 09/20/24 Unknown History insulin glargine 100 unit/mL (3 34 unit subcut BEDTIME 09/20/24 09/20/24 Unknown History mL) subcutaneous pen (Basaglar KwikPen U-100 Insulin) losartan 25 mg tablet 25 mg PO DAILY 09/20/24 09/20/24 Unknown History potassium chloride 20 mEq 20 meq PO DAILY 09/20/24 09/20/24 Unknown History tablet,extended release Physical Exam 2 Vital Signs and Narrative: Vital Signs: Last Vital Signs Temp 98.4 F 09/20/24 16:06 Pulse 66 09/20/24 17:49 Resp 16 09/20/24 17:49 BP 126/78 09/20/24 17:49 Pulse Ox 98 09/20/24 17:49 O2 Del Method Room Air 09/20/24 17:49 BMI result Body Mass Index 37.0 Const: Other: Constitutional : Awake, interactive, not in distress Neck : Normal inspection, Supple, clear throat with no edema Cardiovascular : RRR, no JVP, +1 upper and lower extremity edema Respiratory : good bilateral air entry, no crackles, wheezes or rhonchi Gastrointestinal: soft, lax, Normal bowel sounds, Non tender Skin : Warm, Dry, lower lip moderate swelling, left facial swelling at jaw level, no kain-orbital edema Neurological : Alert & oriented x3, No focal deficit Results Labs 09/20/24 16:12 09/20/24 16:12 Labs: Laboratory Results - last 24 hr 09/20/24 09/20/24 16:12 18:39 MCV 85.0 MCH 29.4 MCHC 34.6 RDW 13.6 Plt Count 313 MPV 9.2 L Immature Gran % (Auto) 0.4 Neut % (Auto) 61.7 Lymph % (Auto) 26.2 [place] % (Auto) 8.3 Eos % (Auto) 2.8 Baso % (Auto) 0.6 Lymph # (Auto) 2.8 [place] # (Auto) 0.9 Eos # (Auto) 0.3 Baso # (Auto) 0.1 Abs Immat Gran (auto) 0.04 H Absolute Neuts (auto) 6.7 Absolute Nucleated RBC 0.000 Nucleated RBC % (auto) 0.0 Anion Gap 13 Estim Creat Clear Calc 104.1 Estimated GFR > 60 Random Glucose 200 H Calcium 9.0 Troponin I High Sens 4.0 Urine Color Yellow Urine Appearance Clear Urine pH 7.0 Ur Specific [place] 1.020 Urine Protein 300 (3+) H Urine Glucose (UA) Negative Urine Ketones Negative Urine Blood Negative Urine Nitrite Negative Ur Leukocyte Esterase Negative Assessment and Plan (1) Lip swelling: Status: Acute (2) Allergic reaction: Status: Acute Plan A 68 years old male with PMH of HTN, HLD, Angioedema, DMII among others who presents to the hospital with swelling in left side of his face and lips. Swollen lips and face, allergic reaction concerning with history of Angioedema Likely related to Jerky beef additives vs Losartan or Motrin Hold Losartan and Motrin Give Steroids, Benadryl and Famotidine monitor in Telemetry for any deterioration DMII Lantus 10 units only SSI, diabetic diet HTN Hydralazine and Amlodipine HLD continue ASA and statin Opioid abuse hx Suboxone DVT PPx Lovenox Quality Stroke Does the patient have a stroke diagnosis?: No VTE Prior VTE?: No VTE Risk Level:: Medical - moderate - high VTE Device Contraindication: Treatment Not Indicated VTE Drug Contraindication: N/A - Med Ordered
[2024-09-20 19:40] VITALS: BP 145/81; PULSE 69; RESP 13; TEMP 36.8; O2SAT 93
[2024-09-20 19:55] LABS: Glucose, Whole Blood 156 mg/dL (60-115)
[2024-09-20] MEDS: Famotidine 20 MG TABLET PO (20:04)
[2024-09-20] MEDS: Enoxaparin Sodium 40 MG/0.4 ML SYRINGE SUBCUT (20:04)
[2024-09-20] MEDS: Insulin Lispro 100 UNIT/ML 3 ML VIAL SUBCUT (20:04)
[2024-09-20] MEDS: hydrALAZINE HCl 25 MG TABLET PO (20:04)
[2024-09-20] MEDS: diphenhydrAMINE HCL 25 MG CAPSULE PO (20:04)
[2024-09-20] MEDS: Insulin Glargine,Hum.rec.anlog 100 UNIT/ML 10 ML VIAL 10 UNIT SUBCUT (20:04)
[2024-09-20 22:20] VITALS: BMI 36.9
[2024-09-20 23:17] VITALS: BP 152/72; PULSE 67; RESP 16; TEMP 36.2; O2SAT 88
[2024-09-21] MEDS: diphenhydrAMINE HCL 25 MG CAPSULE PO ×2 (02:36→09:03)
[2024-09-21 03:21] VITALS: BP 130/79; PULSE 62; RESP 16; TEMP 36.6; O2SAT 95
[2024-09-21 06:08] LABS: MANUAL DIFF FLAG NO
[2024-09-21 06:16] LABS: Basophils Percent Auto 0.1 % (0-2); Hematocrit 43.2 % (42.0-52.0); Hemoglobin 14.9 g/dl (14.0-18.0); Imm Gran Abs Auto 0.06 X10*3/uL (0.00-0.03); Imm Gran Pct Auto 0.5 % (0.0-0.4); Lymphocytes Absolute Auto 1.3 X10*3/uL (1.2-4.9); Lymphocytes Percent Auto 10.4 % (20-40); Mean Corpuscular HGB Conc 34.5 g/dl (31.0-36.0); Mean Corpuscular Hemoglobin 29.7 pg (27.0-33.0); Mean Corpuscular Volume 86.1 fL (80.0-98.0); Mean Platelet Volume 9.5 fL (9.4-12.4); Monocytes Absolute Auto 0.2 X10*3/uL (0.1-1.2); Monocytes Percent Auto 1.4 % (2-11); Neutrophils Absolute Auto 10.6 x10*3/uL (2.0-8.3); Neutrophils Percent Auto 87.6 % (45-73); Platelet Count 325 X10*3/uL (160-400); Red Blood Count 5.02 X10*6/uL (4.60-5.80); Red Cell Distribution Width 13.3 % (11.0-16.0); White Blood Count 12.1 X10*3/uL (4.8-10.8)
[2024-09-21 06:32] LABS: Anion Gap 11 (12-20); Blood Urea Nitrogen 18 mg/dL (9-16); Calcium 8.9 mg/dL (8.4-10.2); Carbon Dioxide 24 mmol/L (22-29); Chloride 104 mmol/L (96-108); Creatinine Clr Calc Pharmacy 107.6; Estimated Glomerular Filt Rate > 60; Glucose Random 240 mg/dL (60-115); Sodium 135 mmol/L (135-145)
[2024-09-21 06:55] VITALS: BP 148/75; PULSE 64; RESP 20; TEMP 36.7; O2SAT 95
[2024-09-21 06:56] LABS: Glucose, Whole Blood 224 mg/dL (60-115)
[2024-09-21 08:56] LABS: Creatinine Clr Calc Pharmacy 108.8; Estimated Glomerular Filt Rate > 60
[2024-09-21] MEDS: Insulin Lispro 100 UNIT/ML 3 ML VIAL SUBCUT (09:03)
[2024-09-21] MEDS: hydrALAZINE HCl 25 MG TABLET PO (09:03)
[2024-09-21] MEDS: Furosemide 40 MG TABLET PO (09:03)
[2024-09-21] MEDS: Buprenorphine/Naloxone 8/2 mg FILM 1 FILM SUBLINGUAL (09:03)
[2024-09-21] MEDS: metFORMIN HCl ER 500 MG TAB.ER.24H PO (09:03)
[2024-09-21] MEDS: Aspirin Enteric Coated 81 MG TABLET.DR PO (09:03)
[2024-09-21] MEDS: Potassium Chloride ER 20 MEQ TAB.ER.PRT PO (09:05)
[2024-09-21] MEDS: Famotidine 20 MG TABLET PO (09:05)
[2024-09-21] MEDS: predniSONE 20 MG TABLET 40 MG PO (09:05)
[2024-09-21 09:06] VITALS: BP 132/63
[2024-09-21] MEDS: amLODIPine Besylate 10 MG TABLET PO (09:06)
[2024-09-21] MEDS: 0.9 % Sodium Chloride Flush 3 ML SYRINGE IVFLUSH (09:06)
[2024-09-21] MEDS: Atorvastatin Calcium 10 MG TABLET PO (09:06)
--- NOTE | 2024-09-21 09:35 | P.DS_ITS ---
DS: Providers Provider Date of Service: 09/21/24 Date of admission: 09/20/24 18:13 Date of discharge: 09/21/24 Primary care physician: Troy Willis MD DS: Diagnosis Discharge Diagnosis (1) Lip swelling: Status: Acute (2) Allergic reaction: Status: Acute DS: Summary Hospital Course Hospital Course: admission hpi Chief Complaint: Swollen lips, allergic reaction A 68 years old male with PMH of HTN, CAD, HLD, Angioedema, DMII among others who presents to the hospital with swelling in left side of his face and lips. The patient had history of angioedema while on Lisinopril that was then switched to Losartan months ago. He had some Beef jerk last night and went to bed. He woke up around 3 am to go to the bathroom and noticed some swelling in his face and lips but did not do anything about it and went back to sleep. woke up again at 6 and noticed the swelling worsening so he took his Epinephrine pen shot. He denies any difficulties breathing, speech, voice, swallowing. No chest pain, palpitations, SOB, nausea, vomiting, diarrhea or urinary symptoms. No new medications started recently. the only new thing was the Jerky beef that he had the night before. In ED he was still showing lip and face swelling so he received Epinephrine again along with IV steroids and Pepcid. Admitted for observation. - hospial course: Patient was admitted for management of angiogedema attributed to possible allergic reaction from beef Jerky additives vs Losartan or Motrin--these agents have been stopped and treated with Benadryl and steroid. Signs and symptoms all resolved, will stop Losartant and caution eating that same Beef Jerky and avoid Motrin. Will discharge with Prednisone for 3 more days and PRN Benadryl Time Attestation Discharge Coordination Time (in mins): 35 Quality: Safe Use of Opioids Does Pt have an Active Cancer Diagnosis on the Problem List?: No Quality: Stroke Does the patient have a stroke diagnosis?: No Physical Exam Vital Signs: Vital Signs: Last Vital Signs Temp 98.0 F 09/21/24 06:55 Pulse 64 09/21/24 06:55 Resp 20 09/21/24 06:55 BP 132/63 09/21/24 09:06 Pulse Ox 95 09/21/24 06:55 O2 Del Method Room Air 09/21/24 06:55 BMI result Body Mass Index 36.9 DS: Data Data Completed and Pending Labs on day of discharge: Laboratory Results - last 24 hr 09/20/24 09/20/24 09/20/24 16:12 18:39 19:50 WBC 10.8 RBC 5.07 Hgb 14.9 Hct 43.1 MCV 85.0 MCH 29.4 MCHC 34.6 RDW 13.6 Plt Count 313 MPV 9.2 L Immature Gran % (Auto) 0.4 Neut % (Auto) 61.7 Lymph % (Auto) 26.2 [place] % (Auto) 8.3 Eos % (Auto) 2.8 Baso % (Auto) 0.6 Lymph # (Auto) 2.8 [place] # (Auto) 0.9 Eos # (Auto) 0.3 Baso # (Auto) 0.1 Abs Immat Gran (auto) 0.04 H Absolute Neuts (auto) 6.7 Absolute Nucleated RBC 0.000 Nucleated RBC % (auto) 0.0 Sodium 138 Potassium 3.4 Chloride 101 Carbon Dioxide 27 Anion Gap 13 BUN 14 Creatinine 0.92 Estim Creat Clear Calc 104.1 Estimated GFR > 60 POC Glucose 156 H Random Glucose 200 H Calcium 9.0 Troponin I High Sens 4.0 Urine Color Yellow Urine Appearance Clear Urine pH 7.0 Ur Specific [place] 1.020 Urine Protein 300 (3+) H Urine Glucose (UA) Negative Urine Ketones Negative Urine Blood Negative Urine Nitrite Negative Ur Leukocyte Esterase Negative Urine RBC 0-2 Urine WBC 0-5 Ur Squamous Epith Cells 0-2 Urine Bacteria None Seen Hyaline Casts 0-2 09/21/24 09/21/24 09/21/24 05:54 06:51 08:18 WBC 12.1 H RBC 5.02 Hgb 14.9 Hct 43.2 MCV 86.1 MCH 29.7 MCHC 34.5 RDW 13.3 Plt Count 325 MPV 9.5 Immature Gran % (Auto) 0.5 H Neut % (Auto) 87.6 H Lymph % (Auto) 10.4 L [place] % (Auto) 1.4 L Eos % (Auto) 0.0 Baso % (Auto) 0.1 Lymph # (Auto) 1.3 [place] # (Auto) 0.2 Eos # (Auto) 0.0 Baso # (Auto) 0.0 Abs Immat Gran (auto) 0.06 H Absolute Neuts (auto) 10.6 H Absolute Nucleated RBC 0.000 Nucleated RBC % (auto) 0.0 Sodium 135 Potassium 4.0 Chloride 104 Carbon Dioxide 24 Anion Gap 11 L BUN 18 H Creatinine 0.89 0.88 Estim Creat Clear Calc 107.6 108.8 Estimated GFR > 60 > 60 POC Glucose 224 H Random Glucose 240 H Calcium 8.9 Troponin I High Sens Urine Color Urine Appearance Urine pH Ur Specific [place] Urine Protein Urine Glucose (UA) Urine Ketones Urine Blood Urine Nitrite Ur Leukocyte Esterase Urine RBC Urine WBC Ur Squamous Epith Cells Urine Bacteria Hyaline Casts Discharge Plan Discharge Anticipated Discharge Date/Time: 09/21/24 09:25 Patient Disposition: Home, Self-Care Discharge Diagnosis: Angioedema Referrals: Troy Willis MD [Primary Care Provider] - 1 Week Discharge Medications: New prednisone 20 mg Tablet 40 mg PO DAILY Qty: 6 0RF diphenhydramine HCl [Banophen] 25 mg Capsule 25 mg PO Q6H Qty: 20 0RF famotidine 20 mg Tablet 20 mg PO BID Qty: 10 0RF Continued epinephrine [EpiPen 2-Chandu] 0.3 mg/0.3 mL auto-injector 0.3 mg IM Q4H PRN (Reason: anaphylaxis) Qty: 2 0RF amlodipine [Norvasc] 10 mg tablet 10 mg PO DAILY Qty: 30 0RF furosemide 40 mg tablet 40 mg PO DAILY atorvastatin 10 mg tablet 10 mg PO DAILY hydralazine 25 mg tablet 25 mg PO TID aspirin 81 mg tablet,delayed release (DR/EC) 81 mg PO DAILY ibuprofen 600 mg tablet 600 mg PO Q8H PRN (Reason: pain) albuterol sulfate 90 mcg/actuation HFA aerosol inhaler 2 puff inhalation Q4H PRN (Reason: wheezing) insulin glargine [Basaglar KwikPen U-100 Insulin] 100 unit/mL (3 mL) insulin pen 34 unit subcut BEDTIME potassium chloride 20 mEq tablet extended release 20 meq PO DAILY buprenorphine-naloxone [Suboxone] 8-2 mg film 1 film sublingual DAILY metformin 500 mg tablet extended release 24 hr 500 mg PO BIDWM (DME) lancets [FreeStyle Lancets] 28 gauge misc See Rx Instructions Not Applicable .MEDSUPPLY Qty: 100 Rx Instructions: As directed (DME) pen needle, diabetic [BD Milagro 2nd Gen Pen Needle] 32 gauge x 5/32 nee dle See Rx Instructions subcut DAILY Qty: 50 Rx Instructions: As directed Discontinued losartan 25 mg tablet 25 mg PO DAILY Discharge Orders: Discharge Order (Routine); Ordered 09/21/24 Ordered By: Sawyer Butt Diet: Advance to usual diet Activity on Discharge: As tolerated Stand Alone Forms: Patient Portal Discharge page Print Language: Yi Care Plan Goals: recovery from allergic reaction and angioedema - Health Concerns: angioedema Plan of Treatment: stop taking Losartan take Benadryl and Prednisone as directed for 3 days Assessment: see above Discharge Date/Time: 09/21/24 11:47
--- NOTE | 2024-09-21 09:39 | MHC.CM.PN ---
Ana Lilia 09/21/24, Pt lves with family, is independent, no home health services or DME. PCP is new to him at [facility], he does not know name of provider. He can arrange a ride home at [place]. DCP: home, self care. CM to follow for DC needs. HCP form to be completed and added to chart.
[2024-09-21 10:55] VITALS: BP 133/66; PULSE 63; RESP 20; TEMP 37; O2SAT 94
--- NOTE | 2024-09-21 11:40 | MHC.CM.PN ---
Pt. has been medically cleared for DC, he will go home via private transport, and plan is self care.
== END 2024-09-21 11:47 | disposition home or self-care (01) ==
LOC: HO.ED 18:00 → HO.EDOVER 19:45 → HO.IMC 21:10
PROVIDERS: Admitting Provider Student in an Organized Health Care Education/Training Program; Emergency Provider Emergency Medicine; PCP Internal Medicine; Visit Provider Internal Medicine
DX: R22.0 Localized swelling, mass and lump, head (principal); T78.3XXA Angioneurotic edema, initial encounter; X58.XXXA Exposure to other specified factors, initial encounter; Y92.9 Unspecified place or not applicable; E11.9 Type 2 diabetes mellitus without complications; I10 Essential (primary) hypertension; I25.10 Atherosclerotic heart disease of native coronary artery without angina pectoris; Z91.018 Allergy to other foods; Z79.899 Other long term (current) drug therapy
CPT/HCPCS: 36415; 80048; 81001; 82565; 82947; 84484; 85025; 96365; 96372; 96375; 99222; 99285; J0171; J1650; J2919

== ENCOUNTER → 2024-09-20 18:13 | Outpatient (BNV) | payer MEDICARE, MEDICAID, SELFPAY | PROVIDERS: Admitting Provider Student in an Organized Health Care Education/Training Program; Emergency Provider Emergency Medicine; PCP Internal Medicine; Visit Provider Student in an Organized Health Care Education/Training Program | DX: R22.0 Localized swelling, mass and lump, head (principal); T78.40XA Allergy, unspecified, initial encounter | CPT/HCPCS: 99222; 99239 ==